=== PATIENT | male | born 1995 | race Caucasian/White ===

== ENCOUNTER → 2018-08-23 16:38 | Outpatient (CLI) | payer OTHER, SELFPAY ==
[2018-08-23 20:38] LABS: Urine N gonorrhoeae NOT DETECTED
[2018-08-23 20:44] LABS: Urine Chlamydia NOT DETECTED
== END ==
PROVIDERS: PCP Family Medicine; Visit Provider Physician Assistant
DX: Z11.3 Encounter for screening for infections with a predominantly sexual mode of transmission (principal)
CPT/HCPCS: 87491; 87591

== ENCOUNTER → 2023-09-04 15:23 | Outpatient (CLI) | payer OTHER, SELFPAY ==
--- NOTE | 2023-09-04 15:25 | DI.RAD.S_ITS ---
PROCEDURE: XR CHEST 2V INDICATIONS: ATYPICAL CHEST PAIN TECHNIQUE: 2 views of the chest were acquired. COMPARISON: None. FINDINGS: Surgical changes and devices: None. Lungs and pleura: Lungs are clear except for a questionable finding of mild blurring of the right lower lobe pulmonary vessels, a finding not also documented on the lateral view. No pleural effusions or pneumothorax. Mediastinum: Mediastinal contours are normal. Heart size is normal. Bones and chest wall: No suspicious bony abnormalities. Soft tissues appear unremarkable. IMPRESSION: Questionable finding of mild or early pneumonia right lower lobe seen on the frontal view only. This is a subtle finding and does not represent a definite pneumonia. No pneumothorax. Dictated by: William Sorensen M.D. on 09/04/2023 at 16:19 Approved by: William Sorensen M.D. on 09/04/2023 at 16:20
== END ==
PROVIDERS: PCP Family Medicine; Referring Provider Family Medicine; Visit Provider Family Medicine
DX: R07.89 Other chest pain (principal)
CPT/HCPCS: 71046